=== PATIENT | female | born 1960 | race Two or more races ===

== ENCOUNTER 2019-10-28 12:46 | Emergency (ER) | payer MEDICAID ==
[~2019-10-28] VITALS: Ht 154.9 cm; Wt 86.4 kg
[2019-10-28] MEDS ORDERED: RANI150T7 PO (13:03)
[2019-10-28] MEDS ORDERED: ASPI-1182 PO (13:03)
[2019-10-28] MEDS ORDERED: LEVO150 PO (13:03)
[2019-10-28] MEDS ORDERED: HYDR25TA PO (13:03)
[2019-10-28] MEDS ORDERED: LISI-662 PO (13:03)
[2019-10-28 15:03] VITALS: BP 130/84
== END 2019-10-28 15:04 | disposition home or self-care (01) ==
LOC: EMS 12:48
DX: S79.911A Unspecified injury of right hip, initial encounter (principal); I10 Essential (primary) hypertension; E03.9 Hypothyroidism, unspecified; Z79.899 Other long term (current) drug therapy; Z79.82 Long term (current) use of aspirin; V03.99XA Pedestrian with other conveyance injured in collision with car, pick-up truck or van, unspecified whether traffic or nontraffic accident, initial encounter; Y93.89 Activity, other specified; Y92.89 Other specified places as the place of occurrence of the external cause; Y99.8 Other external cause status
CPT/HCPCS: 73502